=== PATIENT | male | born 1980 | race Caucasian/White ===

== ENCOUNTER 2017-07-15 02:56 | Inpatient (IN) | payer OTHER ==
[~2017-07-15] VITALS: Ht 188 cm; Wt 95.5 kg
[2017-07-15 04:41] LABS: MEAN CORPUSCULAR HEMOGLOBIN 30.5 pg (27.0-33.0); MEAN CORPUSCULAR HGB CONC 34.1 g/dl (32.0-36.5); MEAN CORPUSCULAR VOLUME 89.5 fl (80.0-96.0); PLATELET COUNT, AUTOMATED 319 10^3/uL (150-450); RED CELL DISTRIBUTION WIDTH 11.8 % (11.5-14.5); WHITE BLOOD COUNT 6.8 10^3/uL (4.0-10.0)
[2017-07-15 05:01] LABS: METHADONE URINE NEGATIVE (NEGATIVE)
[2017-07-15 05:09] LABS: ALBUMIN 4.3 GM/DL (3.2-5.2); ALBUMIN/GLOBULIN RATIO 1.23 (1.00-1.93); ALKALINE PHOSPHATASE 64 U/L (45-117); ALT/SGPT 27 U/L (12-78); ANION GAP 11 MEQ/L (8-16); AST/SGOT 19 U/L (7-37); BILIRUBIN,DIRECT 0.1 MG/DL (0.0-0.2); BILIRUBIN,TOTAL 0.2 MG/DL (0.2-1.0); BLOOD UREA NITROGEN 10 MG/DL (7-18); CALCIUM LEVEL 8.6 MG/DL (8.5-10.1); CARBON DIOXIDE LEVEL 24 MEQ/L (21-32); CHLORIDE LEVEL 107 MEQ/L (98-107); CREATININE FOR GFR 1.08 MG/DL (0.70-1.30); GLOMERULAR FILTRATION RATE > 60.0 (>60); GLUCOSE, FASTING 91 MG/DL (70-105); POTASSIUM SERUM 3.8 MEQ/L (3.5-5.1); SODIUM LEVEL 142 MEQ/L (136-145); TOTAL PROTEIN 7.8 GM/DL (6.4-8.2)
[2017-07-15 13:09] VITALS: BP 112/69
[2017-07-15] MEDS ORDERED: traZODone 50 MG TAB PO PRN (15:15)
[2017-07-15] MEDS ORDERED: LORazepam 1 MG TAB PO PRN (15:15)
[2017-07-15] MEDS ORDERED: ACETAMINOPHEN TAB 650MG DOSE (2X325MG) PO PRN (15:15)
[2017-07-15] MEDS ORDERED: MAALOX 30 ML SUSP *UDC PO PRN (15:15)
[2017-07-15] MEDS ORDERED: MOM 30ML SUSPENSION UDC PO PRN (15:15)
[2017-07-16 06:00] VITALS: BP 112/57
--- NOTE | 2017-07-16 09:28 | HPE ---
DATE OF ADMISSION: 07/15/2017 Please refer to the psychiatric history and evaluation for further details on this admission. This examination and history is intended for medical issues which may need treatment, followup or consultation on this 37-year-old male. ALLERGIES: No known allergies. PRIMARY CARE PROVIDER: Nydia Hagan. SOCIAL HISTORY: He is a soldier, currently stationed at [employer]. ETOH - One a month. Smokes - None. Recreational drug use - None. PAST MEDICAL HISTORY: Negative. PAST SURGICAL HISTORY: Negative. HOME MEDICATIONS: None. FAMILY HISTORY: Noncontributory. LABORATORY STUDIES: WBC 6.8, hemoglobin 14.2, hematocrit 41.6, platelets 319. CMP was normal. Toxicology screen showed ETOH 0.184. REVIEW OF SYSTEMS: Ten systems review was done and was unremarkable. PHYSICAL EXAMINATION: 37-year-old cooperative male in no acute distress. Height 74 inches. Weight 95.5 kg. Body mass index (BMI) 27. Blood pressure 125/70. Pulse 72. Respirations 16. Temperature 99. The patient is alert and oriented times three. Pupils equal and reactive to light. Extraocular movements intact. Cornea and sclera clear. Conjunctiva normal. No facial asymmetry. Pharynx, tongue and gums pink and moist. Tongue is midline. Neck is supple, without lymphadenopathy. No thyromegaly. No goiter. Carotids 2+, without bruit. Chest clear to auscultation, without wheeze or retraction. Heart is regular. Abdomen benign. Bowel sounds positive. Genitourinary ()/Rectal: Not done. Extremities show equal strength, full range of motion. No cyanosis, clubbing or edema. Peripheral pulses equal and palpable bilaterally. Skin is warm and dry. IMPRESSION AND PLAN: 1. Psychiatric. Plan per psychiatry. 2. No acute medical issues.
[2017-07-16 11:55] VITALS: BP 138/89
[2017-07-16 18:00] VITALS: BP 113/67
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
[2017-07-16 21:30] VITALS: BP 130/78
[2017-07-17 07:00] VITALS: BP 101/55
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
[2017-07-17] MEDS ORDERED: TRAZO50TA PO (13:20)
== END 2017-07-17 14:45 | disposition home or self-care (01) | DRG 898 ==
LOC: EDBD 02:56 → M ED 02:56 → M ED INP 12:21 → M PSY 12:56
PROVIDERS: ADMIT Psychiatry & Neurology Psychiatry; ATTEND Psychiatry & Neurology Psychiatry
DX: F10.94 Alcohol use, unspecified with alcohol-induced mood disorder (principal); F41.1 Generalized anxiety disorder